=== PATIENT | female | born 1985 | race American Indian/Alaskan Native ===

== ENCOUNTER 2021-04-16 23:06 | Emergency (ER) | payer SELFPAY | END 2021-04-16 23:15 | disposition left against medical advice (07) | LOC: ED 23:06 | DX: R51.9 Headache, unspecified (principal); Z53.21 Procedure and treatment not carried out due to patient leaving prior to being seen by health care provider ==

== ENCOUNTER 2022-03-20 21:09 | Emergency (ER) | payer MEDICAID ==
[2022-03-20 21:17] VITALS: BP 181/115
== END 2022-03-24 09:28 | disposition left against medical advice (07) ==
LOC: ED 21:09
DX: T63.301A Toxic effect of unspecified spider venom, accidental (unintentional), initial encounter (principal); Z53.21 Procedure and treatment not carried out due to patient leaving prior to being seen by health care provider; Y92.89 Other specified places as the place of occurrence of the external cause